=== PATIENT | female | born 1980 | race Caucasian/White ===

== ENCOUNTER 2023-04-03 14:52 | Outpatient (CLI) | payer OTHER, SELFPAY ==
--- NOTE | 2023-04-03 15:00 | CRLHL7_ITS ---
For Patients: As a result of the Century Cures Act, medical imaging exams and procedure reports are released immediately into your electronic medical record. You may view this report before your referring provider. If you have questions, please contact your health care provider. BILATERAL SCREENING MAMMOGRAM WITH COMPUTER-AIDED DETECTION AND TOMOSYNTHESIS TECHNIQUE: CC and MLO views were obtained. These mammographic images have been obtained using full-field digital technique. These mammographic images were interpreted with the benefit of computer-aided detection. Breast Tomosynthesis was used in this interpretation. COMPARISON FILM: Baseline. FINDINGS: The breasts are extremely dense, which lowers the sensitivity of mammography IMPRESSION: There is no radiographic evidence for malignancy. ASSESSMENT: BI-RADS Category 2: Benign RECOMMENDATION: Routine screening mammogram in 1 year. A lay language report of this examination will be provided to the patient. Rodrigue Vernon M.D. Diagnostic Radiologist [email or web address] Transcribed: 1:04 [email or web address] heath/Dictated by: Rodrigue Vernon MD @ 04/04/2023 10:03:00 AM (Electronically Signed)
== END 2023-04-03 14:53 | disposition home or self-care (01) ==
LOC: MAMMO 14:53
PROVIDERS: Visit Provider Obstetrics & Gynecology
DX: Z12.31 Encounter for screening mammogram for malignant neoplasm of breast (principal); R92.2 Inconclusive mammogram
CPT/HCPCS: 77063; 77067

== ENCOUNTER 2023-04-07 08:17 | Outpatient (CLI) | payer OTHER, SELFPAY | END 2023-04-07 08:18 | disposition home or self-care (01) | LOC: NFLDREF 04-09 10:04 | PROVIDERS: Visit Provider Physician Assistant | DX: G25.81 Restless legs syndrome (principal); Z13.6 Encounter for screening for cardiovascular disorders; Z13.1 Encounter for screening for diabetes mellitus | CPT/HCPCS: 80061; 82728; 82947 ==

== ENCOUNTER 2023-06-23 08:14 | Outpatient (CLI) | payer BC, SELFPAY ==
--- NOTE | 2023-06-23 08:15 | CRLHL7_ITS ---
For Patients: As a result of the Century Cures Act, medical imaging exams and procedure reports are released immediately into your electronic medical record. You may view this report before your referring provider. If you have questions, please contact your health care provider. INDICATION: Irregular menses COMPARISON: none TECHNIQUE: 2D arellano scale and color Doppler images were acquired of the pelvis using a transabdominal and transvaginal approach. FINDINGS: Sonographic images demonstrate a normal size and smooth outer contour of the uterus. Uterus measures 10.8 cm in length by 5.1 cm in AP diameter by 5.5 cm in transverse dimension. The myometrium has a normal uniform echotexture. The endometrial lining measures 9 mm in composite thickness. The right ovary measures 3.4 x 1.9 x 1.8 cm in size and the left ovary measures 4.4 x 2.0 x 2.5 cm. The ovaries demonstrate normal arterial and venous blood flow on color Doppler analysis. There are no suspicious fluid collections within the cul-de-sac. Echogenic focus right ovary measuring 5 x 3 x 3 millimeters may represent incidental calcification or small dermoid. Simple cyst left ovary measuring 2.2 cm. IMPRESSION: Endometrial thickness 9 millimeters. No fibroids. Dictated by Rodrigue Vernon MD @ 06/23/2023 10:28:50 AM (Electronically Signed)
== END 2023-06-23 08:15 | disposition home or self-care (01) ==
LOC: US 08:15
PROVIDERS: Visit Provider Obstetrics & Gynecology
DX: N92.6 Irregular menstruation, unspecified (principal); R93.89 Abnormal findings on diagnostic imaging of other specified body structures
CPT/HCPCS: 76830; 76856

== ENCOUNTER 2023-12-16 09:44 | Outpatient (CLI) | payer BC, SELFPAY ==
--- NOTE | 2023-12-16 09:45 | CRLHL7_ITS ---
For Patients: As a result of the Century Cures Act, medical imaging exams and procedure reports are released immediately into your electronic medical record. You may view this report before your referring provider. If you have questions, please contact your health care provider. DIGITAL DIAGNOSTIC RIGHT MAMMOGRAM USING TOMOSYNTHESIS AND COMPUTER-AIDED DETECTION RIGHT BREAST ULTRASOUND CLINICAL HISTORY: RIGHT breast lump. COMPARISON: 04/03/2023. TECHNIQUE: Digital RIGHT mammogram in two projections with computer-aided detection. Tomosynthesis was used in this interpretation. Real-time ultrasound imaging of RIGHT breast with imaging documentation. BREAST COMPOSITION: The breast is heterogeneously dense, which may obscure small masses. FINDINGS: 3D CC and 3D MLO RIGHT breast mammogram images submitted. No suspicious mass or architectural distortion. No adenopathy or suspicious calcifications. Targeted sonogram RIGHT breast 3 o`clock 7 cm from the nipple performed in the area of concern. Normal dense fibroglandular tissue is present. No fibrocystic change or mass. IMPRESSION: No evidence of malignancy. RECOMMENDATIONS: Routine bilateral screening mammography. Results and recommendations discussed with the patient. BI-RADS Category 2: Benign A lay language report of this examination will be provided to the patient. Dictated by Rodrigue Vernon MD @ 12/16/2023 12:30:05 PM jj/Dictated by: Rodrigue Vernon MD @ 12/16/2023 12:30:00 PM (Electronically Signed)
--- NOTE | 2023-12-16 10:15 | CRLHL7_ITS ---
For Patients: As a result of the Cures Act, medical imaging exams and procedure reports are released immediately into your electronic medical record. You may view this report before your referring provider. If you have questions, please contact your health care provider. PLEASE SEE DIGITAL DIAGNOSTIC RIGHT MAMMOGRAM PERFORMED SAME DAY [email or web address] heath/Dictated by: Rodrigue Vernon MD @ 12/16/2023 12:30:00 PM (Electronically Signed)
== END 2023-12-16 09:45 | disposition home or self-care (01) ==
LOC: MAMMO 09:44
PROVIDERS: Visit Provider Obstetrics & Gynecology
DX: N63.10 Unspecified lump in the right breast, unspecified quadrant (principal)
CPT/HCPCS: 76642; 77065; G0279

== ENCOUNTER 2024-04-06 18:14 | Outpatient (CLI) | payer BC, SELFPAY ==
--- NOTE | 2024-04-06 18:20 | CRLHL7_ITS ---
For Patients: As a result of the Century Cures Act, medical imaging exams and procedure reports are released immediately into your electronic medical record. You may view this report before your referring provider. If you have questions, please contact your health care provider. BILATERAL SCREENING MAMMOGRAM WITH COMPUTER-AIDED DETECTION AND TOMOSYNTHESIS TECHNIQUE: CC and MLO views were obtained. These mammographic images have been obtained using full-field digital technique. These mammographic images were interpreted with the benefit of computer-aided detection. Breast Tomosynthesis was used in this interpretation. COMPARISON FILM: 12/16/23, 04/03/23. FINDINGS: The breasts are extremely dense, which lowers the sensitivity of mammography. IMPRESSION: There is no radiographic evidence for malignancy. ASSESSMENT: BI-RADS Category 2: Benign RECOMMENDATION: Routine screening mammogram in 1 year. A lay language report of this examination will be provided to the patient. Rodrigue Vernon M.D. Diagnostic Radiologist [email or web address] SP/Dictated by: Rodrigue Vernon MD @ 04/12/2024 9:33:00 AM (Electronically Signed)
== END 2024-04-06 18:15 | disposition home or self-care (01) ==
LOC: MAMMO 18:15
PROVIDERS: Visit Provider Obstetrics & Gynecology
DX: Z12.31 Encounter for screening mammogram for malignant neoplasm of breast (principal); R92.333 Mammographic heterogeneous density, bilateral breasts
CPT/HCPCS: 77063; 77067

== ENCOUNTER 2024-05-28 09:29 | Outpatient (CLI) | payer BC, SELFPAY ==
[2024-05-30 06:19] LABS: HPV Source Cervical; HPV, High Risk by TMA Not Detected
== END 2024-05-28 09:30 | disposition home or self-care (01) ==
PROVIDERS: Visit Provider Obstetrics & Gynecology
DX: Z12.4 Encounter for screening for malignant neoplasm of cervix (principal); Z11.51 Encounter for screening for human papillomavirus (HPV)
CPT/HCPCS: 87624; 87625; 88141; 88142